=== PATIENT | female | born 1970 | race Caucasian/White ===

== ENCOUNTER 2020-03-01 20:36 | Emergency (ER) | payer MEDICAID, SELFPAY ==
[2020-03-01 20:38] VITALS: BP 198/107; PULSE 87; RESP 18; TEMP 36.4; O2SAT 98; BMI 35.4
--- NOTE | 2020-03-01 20:45 | ED.VIS.DENTA ---
History of Present Illness Chief Complaint: Dental Informant: Patient Onset: Days Context: Sudden Onset Timing: Continuous Quality: Pain Location: Lower left molar Current Severity: Moderate Maximum Severity: Severe Worsened by: Cold liquids Relieved by: - - Nothing Associated Symptoms: Cold Narrative: Patient is a 50-year-old woman with history of diabetes who was sent to the ER by dentist for IV antibiotics. Patient denies fever, chills night sweats. She denies rheumatic fever, murmur, SBE, mitral valve prolapse or being immune suppressed. She has no known renal dysfunction. She has no history of peptic ulcer disease. She denies history of hypertension. Patient denies facial swelling or redness. She denies change in voice. Denies difficulty swallowing or difficulty breathing. She is able to open her mouth completely. Prior similar symptoms: No Recent Illness/Hospitalization: No - Past Medical History (1) Type 2 diabetes mellitus Status: Acute Past Medical History - Allergies and Home Meds Allergies/Adverse Reactions: Allergies Penicillins Allergy (Verified 03/01/20 20:40) Rash Prior records reviewed: No Past Medical History: - - Type 2 diabetes Surgical History: noncontributory Lives: Alone Smoking Status: Never smoker Alcohol: None Drugs: None Review of Systems General: Denies: Chills, Fever, Malaise, Subjective Eyes: Denies: Visual changes - bilaterally, Blurred Vision - bilaterally ENT: Denies: Rhinorrhea, Sore throat Cardiovascular: Denies: Chest pain, Palpitations Respiratory: Denies: Dyspnea, Dyspnea on exertion Gastrointestinal: Denies: Nausea, Vomiting, Diarrhea Musculoskeletal: Denies: Neck pain, Back pain Skin: Denies: Rash Neurological: Denies: Headache Endocrine: Denies: Polyuria, Polydipsia Physical Exam Vital Signs/Narrative: Vital Signs Temp Pulse Resp BP Pulse Ox 03/01/20 20:38 97.5 F L 87 18 198/107 H 98 Inital Vital Signs reviewed: Yes General: Well nourished, Well developed, Obese Head: Normocephalic, Atraumatic. Negative for: Trauma, Tenderness ENT: Dry mucous membranes, Moist mucous membranes, No nasal trauma, No rhinorrhea. Negative for: Nasal congestion, Sinus tenderness Mouth/Throat: Normal inspection lips/gums, Normal oral mucosa, Normal posterior oropharynx, No sublingual edema, Normal Stensen's duct, Dental abscess, Focal dental decay, Tenderness on tooth percussion. Negative for: No dental tenderness, No focal abscess, Apthous ulcer, Dental trauma, Dental avulsion, Dentral fracture, Filling loss, Focal gum swelling, Trismus Neck: Supple, No lymphadenopathy, Nontender, No JVD, - - Trachea is midline. There is no inspiratory expiratory stridor. Cardiovascular: Regular rate, Regular rhythm, No murmurs, Normal S1, Normal S2 Respiratory: No distress, CTA bilaterally, Chest nontender Skin: Normal color, No rash Neurological: Alert, Oriented x3, Cranial nerves II-XII grossly intact, Normal Strength, Normal Sensation Psychological: Tearful Diagnostic/Tx/Re-eval - Medical Decision Making Tooth #18 has a large Yeny and apical abscess. Will treat with p.o. antibiotics. Patient has allergy to penicillin. She received dose of clindamycin and because she has history of diabetes she was treated treated with oral opiate analgesia. Elected to treat with NSAIDs because of potential for renal impairment. ED Disposition - Plan for ED Patient: Disposition: Home or Assisted Living Diagnosis: Abscess, periapical, Complex dental cavity Instructions: Dental Abscess Prescriptions: Clindamycin HCl [Cleocin] 300 mg PO Q6H #28 cap Transmission Status: Pending to [facility] ([facility]ICA) #30 Hydrocodone Bitart/Apap 5-325 [Senatobia 5MG-325MG] 1 tablet PO Q6H PRN PRN 3 Days #10 tablet PRN Reason: Pain Referrals: Dentist,Your [STAFF PHYSICIAN] -
[2020-03-01] MEDS: HYDROcodone Bitartrate/Apap 5/325 Tablet PO (20:48)
[2020-03-01] MEDS: Clindamycin HCl 150 MG Capsule 300 MG PO (20:48)
== END 2020-03-01 21:01 | disposition home or self-care (01) ==
LOC: ED 20:59
PROVIDERS: Emergency Provider Emergency Medicine
DX: K04.7 Periapical abscess without sinus (principal); K02.9 Dental caries, unspecified; E11.9 Type 2 diabetes mellitus without complications; Z88.0 Allergy status to penicillin; Z79.84 Long term (current) use of oral hypoglycemic drugs
CPT/HCPCS: 99283

== ENCOUNTER 2020-03-04 01:15 | Emergency (ER) | payer MEDICAID, SELFPAY ==
[2020-03-04 01:17] VITALS: BP 179/88; PULSE 85; RESP 17; TEMP 36.2; O2SAT 98; BMI 33.2
--- NOTE | 2020-03-04 02:03 | ED.DCSUM_ITS ---
- ER Visit Summary Date of Service: 03/04/20 Chief Complaint: Dental pain History of Present Illness: The patient is a 50 F who presents with left lower dental pain that is been getting worse over the past week. Patient states she broke a piece of her tooth off several months ago. Patient states she saw her dentist for this recently and was started on clindamycin and [place]. Patient states she has been taking this but no improvement. Patient states her pain is worse with chewing. Patient states she has been unable to eat due to the pain. Patient denies any fevers or chills. Patient admits to some swelling of her lower jaw and face. Patient also admits to hot and cold sensitivity. Physical Examination: Vital signs are stable. Patient is afebrile. Patient is in no acute distress. Oral mucosa is pink and moist. Oropharynx is clear. There is a large dental carry noted over the left lower second molar. There is some mild gingival edema around this tooth. There is no fluctuance. There is no evidence of any abscess. Neck is supple. Trachea is midline. There is no JVD or lymphadenopathy. Cranial nerves II through XII are intact. There are no focal motor or sensory deficits noted. Emergency Department Course and Treatment: [place] temporary sealant was placed over the cavity. Patient was instructed to continue her clindamycin and [place] as previously prescribed. Patient was instructed to follow-up with her dentist as scheduled. Patient understood and was agreeable with the plan. All questions were answered. Disposition: Discharge home Impression: Infected dental caries This note was generated with [employer] dictation software. It may contain incorrect words, spelling, and punctuation that were not noted in review of the chart prior to signing ED Disposition - Plan for ED Patient: Disposition: Home or Assisted Living Diagnosis: Infected dental caries Instructions: ED CAVITY Dental Referrals: KANDACE PINEDA [Other] - 5-7 Days Dentist,Your [STAFF PHYSICIAN] - Keep [facility] appointment
[2020-03-04] MEDS: Morphine 4 MG/ML Syringe IM (02:24)
== END 2020-03-04 02:29 | disposition home or self-care (01) ==
PROVIDERS: Emergency Provider Emergency Medicine
DX: K02.9 Dental caries, unspecified (principal); K04.7 Periapical abscess without sinus; E11.9 Type 2 diabetes mellitus without complications; E66.9 Obesity, unspecified; Z68.33 Body mass index [BMI] 33.0-33.9, adult; Z79.84 Long term (current) use of oral hypoglycemic drugs
CPT/HCPCS: 96372; 99283